=== PATIENT | female | born 1970 | race African-American/Black ===

== ENCOUNTER 2018-01-24 00:26 | Emergency (ER) | payer MEDICARE ==
[~2018-01-24] VITALS: Ht 167.6 cm; Wt 68.0 kg
[2018-01-24 01:29] VITALS: BP 136/92
== END 2018-01-24 07:43 | disposition left against medical advice (07) ==
LOC: ER 00:26
DX: Z04.3 Encounter for examination and observation following other accident (principal); Z53.21 Procedure and treatment not carried out due to patient leaving prior to being seen by health care provider

== ENCOUNTER 2018-06-26 21:08 | Emergency (ER) | payer MEDICARE, MEDICAID ==
[~2018-06-26] VITALS: Ht 165.1 cm; Wt 64.5 kg
[2018-06-26] MEDS ORDERED: TETANUS, DIPHTHERIA, PERTUSSIS VAC/PF 0.5ML (>7YR OLD) IM ONE (22:45)
[2018-06-26] MEDS ORDERED: LIDOCAINE HCL/PF 1% 10 MG/ML 5ML VIAL IJ ONE (22:45)
[2018-06-26] MEDS ORDERED: BACITRACIN ZINC OINT UDPKT TOP ONE (22:45)
[2018-06-26] MEDS ORDERED: KETOROLAC 60MG/2ML VIAL IM STA (23:22)
[2018-06-27 00:33] VITALS: BP 159/85
== END 2018-06-27 00:35 | disposition home or self-care (01) ==
LOC: ER 21:08
DX: S81.011A Laceration without foreign body, right knee, initial encounter (principal); F31.9 Bipolar disorder, unspecified; F17.200 Nicotine dependence, unspecified, uncomplicated; W25.XXXA Contact with sharp glass, initial encounter; Y93.89 Activity, other specified; Y92.018 Other place in single-family (private) house as the place of occurrence of the external cause
CPT/HCPCS: 12002; 73562; 81025; 90471; 90715; 96372; 99283; J1885; J3490

== ENCOUNTER 2023-10-28 13:59 | Emergency (ER) | payer MEDICAID, MEDICARE ==
[~2023-10-28] VITALS: Ht 167.6 cm; Wt 59.0 kg
[2023-10-28 14:06] VITALS: O2SAT 98
[2023-10-28] MEDS: KETOROLAC 30MG/ML VIAL IM ONE (15:15)
[2023-10-28] MEDS ORDERED: AMOX1TAB16 MT (15:19)
[2023-10-28] MEDS ORDERED: IBUP-2030 MT (15:19)
[2023-10-28] MEDS: HYDROCODONE/ACETAMINOPHEN 5/325MG TABLET PO ONE (15:45)
[2023-10-28 15:50] VITALS: BP 111/84; PULSE 94; RESP 18; TEMP 98.2
== END 2023-10-28 16:45 | disposition home or self-care (01) ==
LOC: ER 14:51
DX: K04.7 Periapical abscess without sinus (principal)
CPT/HCPCS: 99283; 96372; J1885